=== PATIENT | male | born 1970 | race African-American/Black ===

== ENCOUNTER 2020-05-10 01:04 | Inpatient (IN) ==
[2020-05-10 05:25] LABS: Basophils % 0.3 % (0.0-0.8); Eosinophils # 0.1 10*3/uL (0.0-0.87); Eosinophils % 0.6 % (0.00-10.9); Hematocrit 37.6 VOL% (42.0-52.0); Hemoglobin 12.4 GM/DL (14.0-18.0); Immature Granulocytes % 0.8 %; Immature Granulocytes Absolute 0.12 #; Lymphocytes # 4.9 10*3/uL (1.4-4.0); Lymphocytes % 31.7 % (21.2-54.2); Mean Corpuscular Volume 97.4 FL (87-102); Mean Platelet Volume 12.4 FL (9.6-12.0); Monocytes % 11.8 % (1.7-12.7); Neutrophils % 54.8 % (38.7-73.9); Platelet Count 179 T/CUMM (130-400); Red Blood Count 3.86 MC/CUMM (3.8-5.5); Red Cell Distribution Width 12.5 % (9.3-17.3); White Blood Count 15.5 T/CUMM (4-12)
[2020-05-10 05:41] LABS: Albumin 3.3 G/DL (3.4-5.0); Bilirubin,Total 0.8 MG/DL (0.2-1.0); Calcium 9.5 MG/DL (8.5-10.1); Potassium 5.2 MMOL/L (3.5-5.1); Total Protein 8.2 G/DL (6.4-8.3)
[2020-05-10] MEDS ORDERED: MAGNESIUM SULF RIDER 2 GM in PREMIX 1 EACH IV PRN (06:00)
[2020-05-10] MEDS ORDERED: MAGNESIUM SULF RIDER 4 GM in PREMIX 1 EACH IV PRN (06:00)
[2020-05-10] MEDS ORDERED: POTASSIUM CHLORIDE 20 MEQ TABLET PO PRN (06:00)
[2020-05-10] MEDS ORDERED: DOCUSATE SODIUM 100 MG CAPSULE PO PRN (06:01)
[2020-05-10] MEDS ORDERED: hydrALAZINE 20 MG/1 ML VIAL IV PRN (06:01)
[2020-05-10] MEDS ORDERED: ACETAMINOPHEN 325 MG TABLET PO PRN (06:01)
[2020-05-10] MEDS ORDERED: ALBUTEROL 2.5 MG/3 ML NEB RESP TX PRN (06:01)
[2020-05-10] MEDS ORDERED: ONDANSETRON 4 MG/2 ML VIAL IV PRN (06:01)
[2020-05-10] MEDS ORDERED: SODIUM BICARB INJ 100 MEQ in STERILE WATER INJ 400 ML IV PRN (06:03)
[2020-05-10] MEDS ORDERED: SODIUM PHOSPHATE INJ 26.5 MMOL in SODIUM CHLORIDE 0.9% 250 ML IV PRN (06:03)
[2020-05-10] MEDS ORDERED: DEXTROSE 50% 25 GM/50 ML VIAL IV PRN ×2 (06:03)
[2020-05-10] MEDS: SODIUM CHLORIDE 0.9% 1,000 ML IV SCH ×3 (06:36→17:02)
[2020-05-10 06:48] LABS: Risk Ratio 6.14; Thyroid Stimulating Hormone 1.1 uIU/ml (0.358-3.74); VLDL CHOLESTEROL 93.6 MG/DL
[2020-05-10 07:54] LABS: Bacteria,Urine Occasional /HPF (Few); Bilirubin,Urine Negative (Negative); Blood, Urine Large mg/dL (Negative); Glucose,Urine (UA) >=500 mg/dL (Negative); Granular Casts,Urine 6 /LPF (0-1); Ketones,Urine Negative (Negative); Mucus,Urine Occasional /LPF (Occasional); Nitrite,Urine Negative (Negative); Protein,Urine 100 MG/DL; RBC,Urine 503 /HPF (0-4); Red Blood Cell Casts,Urine 3 /LPF (<1); Urine Appearance Slightly Hazy (Clear); Urine Color Yellow (Yellow); Urine Specific Gravity 1.012 (1.001-1.035); Urine Urobilinogen < 2.0 EU/DL (0.2-1.0); WBC,Urine 31 /HPF (0-6)
[2020-05-10] MEDS ORDERED: GLUCAGON 1 MG VIAL IM PRN ×2 (08:05→17:03)
[2020-05-10 08:50] LABS: Anisocytosis 1+; Lymphocytes 38 % (20-55); Macrocytosis 1+; Metamyelocytes 1 %; Platelet Estimate Normal; Segmented Neutrophils 52 % (50-85); Total Cells Counted 100
[2020-05-10] MEDS: INSULIN LISPRO 100 UNIT/ML SUBCUT SCH ×4 (09:22→21:53)
[2020-05-10] MEDS: PANTOPRAZOLE 40 MG TABLET PO SCH (09:22)
[2020-05-10 10:19] LABS: Calcium 9.2 MG/DL (8.5-10.1); Potassium 5.8 MMOL/L (3.5-5.1)
[2020-05-10] MEDS ORDERED: SODIUM POLYSTYRENE SULFATE 15 GM/60 ML BOTTLE PO ONE (10:38)
[2020-05-10] MEDS ORDERED: CALCIUM GLUCONATE 1,000 MG in SODIUM CHLORIDE 0.9% 100 ML IV ONE (10:38)
[2020-05-10] MEDS: INSULIN GLARGINE 100 UNIT/ML SUBCUT SCH (11:59)
[2020-05-10 17:38] LABS: Calcium 9.4 MG/DL (8.5-10.1); Potassium 5.5 MMOL/L (3.5-5.1)
[2020-05-10] MEDS ORDERED: SODIUM CHLORIDE 0.45% 1,000 ML IV SCH (23:03)
[2020-05-11] MEDS: SODIUM CHLORIDE 0.9% 1,000 ML IV SCH ×3 (01:14→18:18)
[2020-05-11 02:27] LABS: Basophils % 0.2 % (0.0-0.8); Eosinophils # 0.1 10*3/uL (0.0-0.87); Eosinophils % 1.3 % (0.00-10.9); Hematocrit 36.9 VOL% (42.0-52.0); Hemoglobin 12.6 GM/DL (14.0-18.0); Immature Granulocytes % 0.9 %; Immature Granulocytes Absolute 0.08 #; Lymphocytes # 1.6 10*3/uL (1.4-4.0); Lymphocytes % 18.3 % (21.2-54.2); Mean Corpuscular HGB Conc 34.1 GM/DL (32-36); Mean Corpuscular Volume 95.6 FL (87-102); Mean Platelet Volume 12.3 FL (9.6-12.0); Monocytes % 7.2 % (1.7-12.7); Neutrophils % 72.1 % (38.7-73.9); Platelet Count 169 T/CUMM (130-400); Red Blood Count 3.86 MC/CUMM (3.8-5.5); Red Cell Distribution Width 12.6 % (9.3-17.3); White Blood Count 8.8 T/CUMM (4-12)
[2020-05-11 02:55] LABS: Uric Acid 7.8 MG/DL (3.5-7.2)
[2020-05-11 03:00] LABS: Albumin 3.1 G/DL (3.4-5.0); Bilirubin,Total 0.8 MG/DL (0.2-1.0); Calcium 8.7 MG/DL (8.5-10.1); Potassium 4.8 MMOL/L (3.5-5.1); Total Protein 7.6 G/DL (6.4-8.3)
[2020-05-11] MEDS: PANTOPRAZOLE 40 MG TABLET PO SCH (08:18)
[2020-05-11] MEDS: INSULIN GLARGINE 100 UNIT/ML SUBCUT SCH (08:19)
[2020-05-11] MEDS: INSULIN LISPRO 100 UNIT/ML SUBCUT SCH ×4 (08:19→22:23)
[2020-05-11 13:14] LABS: Protein/Creatinine Ratio,Urine 0.6 RATIO
[2020-05-12] MEDS: SODIUM CHLORIDE 0.9% 1,000 ML IV SCH ×4 (01:54→18:52)
[2020-05-12] MEDS: PANTOPRAZOLE 40 MG TABLET PO SCH (10:19)
[2020-05-12] MEDS: INSULIN LISPRO 100 UNIT/ML SUBCUT SCH ×4 (10:20→21:18)
[2020-05-12] MEDS: INSULIN GLARGINE 100 UNIT/ML SUBCUT SCH (10:25)
[2020-05-12 11:00] LABS: Calcium 9.2 MG/DL (8.5-10.1); Potassium 4.7 MMOL/L (3.5-5.1)
[2020-05-12] MEDS: METOPROLOL SUCCINATE XL 100 MG TABLET PO SCH (15:47)
[2020-05-13 06:13] LABS: Calcium 8.3 MG/DL (8.5-10.1); Osmolality,Calculated 282.8 MOS/KG (273-304); Potassium 4.7 MMOL/L (3.5-5.1)
[2020-05-13] MEDS: INSULIN LISPRO 100 UNIT/ML SUBCUT SCH ×4 (09:11→20:49)
[2020-05-13] MEDS: METOPROLOL SUCCINATE XL 100 MG TABLET PO SCH (09:12)
[2020-05-13] MEDS: INSULIN GLARGINE 100 UNIT/ML SUBCUT SCH (09:12)
[2020-05-13] MEDS: TAMSULOSIN 0.4 MG CAPSULE PO SCH (09:12)
[2020-05-13] MEDS: LOSARTAN 50 MG TABLET PO SCH (09:12)
[2020-05-13] MEDS: PANTOPRAZOLE 40 MG TABLET PO SCH (09:12)
[2020-05-13] MEDS: SODIUM CHLORIDE 0.9% 1,000 ML IV SCH ×3 (09:13→20:50)
[2020-05-14] MEDS: SODIUM CHLORIDE 0.9% 1,000 ML IV SCH ×3 (02:00→09:06)
[2020-05-14 08:01] LABS: Calcium 8.4 MG/DL (8.5-10.1); Osmolality,Calculated 280.8 MOS/KG (273-304); Potassium 4.7 MMOL/L (3.5-5.1)
[2020-05-14] MEDS: INSULIN GLARGINE 100 UNIT/ML SUBCUT SCH (08:17)
[2020-05-14] MEDS: INSULIN LISPRO 100 UNIT/ML SUBCUT SCH (08:17)
[2020-05-14] MEDS: METOPROLOL SUCCINATE XL 100 MG TABLET PO SCH (08:18)
[2020-05-14] MEDS: LOSARTAN 50 MG TABLET PO SCH (08:18)
[2020-05-14] MEDS: TAMSULOSIN 0.4 MG CAPSULE PO SCH (08:18)
[2020-05-14] MEDS: PANTOPRAZOLE 40 MG TABLET PO SCH (08:18)
[2020-05-14 12:13] VITALS: BP 147/53
== END 2020-05-14 12:05 | disposition home or self-care (01) | DRG 682 ==
LOC: SUATTDRO 04:12 → N.CC 04:12 → N.5E 16:06
PROVIDERS: ADMIT Internal Medicine; ATTEND Internal Medicine Geriatric Medicine